=== PATIENT | female | born 1975 | race Caucasian/White ===

== ENCOUNTER 2021-02-20 15:00 | Emergency (ER) | payer BC ==
[2021-02-20 15:04] VITALS: RESP 18; TEMP 97.9
--- NOTE | 2021-02-20 15:08 | ED ---
Chest Pain HPI - General Source: patient, RN notes reviewed Mode of arrival: ambulatory Limitations: no limitations <Naeem Bermudez - Last Filed: 02/20/21 15:04> <Didi Stephens - Last Filed: 02/20/21 21:07> - General Stated Complaint: Chest Pain Time Seen by Provider: 02/20/21 15:00 - History of Present Illness Initial Comments: This a 46-year-old female presents emergency Department chief complaint of chest pain. Patient states symptoms started yesterday. Patient states symptoms have not resolved today they have been on and off it's it's centralized chest pain. She states is a burning sensation. She states it does not feel like GERD. She has no prior cardiac disease denies any history of hypertension hyperlipidemia and diabetes. Patient is a nonsmoker. Patient offers no other complaints. (Naeem Bermudez) - Related Data Home Medications Medication Instructions Recorded Confirmed No Known Home Medications 02/20/21 02/20/21 Allergies Allergy/AdvReac Type Severity Reaction Status Date / Time No Known Allergies Allergy Verified 02/20/21 19:42 Review of Systems ROS Other: All systems not noted in ROS Statement are negative. <Naeem Bermudez - Last Filed: 02/20/21 15:04> ROS Other: All systems not noted in ROS Statement are negative. <Didi Stephens - Last Filed: 02/20/21 21:07> ROS Statement: Those systems with pertinent positive or pertinent negative responses have been documented in the HPI. EKG Findings - EKG Comments: EKG Findings:: EKG obtained at 1532, reviewed by myself at 1925 shows normal sinus rhythm with an incomplete right bundle branch block. Ventricular rate is 86, [place] interval 152, QRS duration 98, QT 382, QTc 457. No evidence of clinically significant ST elevation or depression. <Didi Stephens - Last Filed: 02/20/21 21:07> Past Medical History Past Medical History: No Reported History History of Any Multi-Drug Resistant Organisms: None Reported Past Surgical History: No Surgical Hx Reported Past Psychological History: No Psychological Hx Reported Smoking Status: Never smoker Past Alcohol Use History: None Reported Past Drug Use History: None Reported <Naeem Bermudez - Last Filed: 02/20/21 15:04> General Exam Limitations: no limitations <Naeem Bermudez - Last Filed: 02/20/21 15:04> Course <Didi Stephens - Last Filed: 02/20/21 21:07> Vital Signs 02/20/21 02/20/21 15:02 19:04 Temperature 97.9 F Pulse Rate 101 H 79 Respiratory 18 18 Rate Blood Pressure 184/103 169/108 O2 Sat by Pulse 100 100 Oximetry - Reevaluation(s) Reevaluation #1: 02/20/21 19:26 Patient had a advanced triage protocols and was evaluated by a physician [facility] faculty assistant Naeem Bermudez PA-c. I evaluated the patient when she was moved back to a room. Patient is reporting chest pressure and substernal burning that started last night. States that the pressure has resolved, but she still has a slight burning sensation she is rating at a 2/10 on the pain scale. She denies any personal cardiac history but reports a family history in both parents and sets of grandparents. Patient states that she does not see a physician regularly. Denies any nausea or vomiting. Denies shortness of breath. Denies any cough or congestion. Denies fever or chills. Denies any abdominal pain or back pain. (Didi Stephens) Chest Pain MDM <Didi Stephens - Last Filed: 02/20/21 21:07> - [facility] RADIOLOGY: Two-view x-ray of the chest is obtained. Report was reviewed in its entirety. Impression by Dr. Hernandez shows no acute cardiopulmonary process. MDM: 46-year-old female patient presented to the emergency department today for evaluation of chest pressure and burning. Physical examination is unremarkable. Abdomen soft and nontender. Labs reviewed and did reveal a negative troponin initially. A repeat troponin was performed was negative as well. Did have low hemoglobin 9.9. Does have a history of anemia. Chest x-ray did reveal no acute abdomen abnormalities. EKG did show an incomplete right bundle branch block, no previous for comparison. I did discuss findings and results with the patient. She does feel comfortable being discharged home at this time she is instructed to follow up with a primary care physician for recheck in 1-2 days. Return parameters were discussed in detail. She verbalizes understanding and agrees with this plan. Case discussed with my attending Dr. Gonzalez. (Didi Stephens) Disposition <Dedoe,Naeem M - Last Filed: 02/20/21 15:04> Is patient prescribed a controlled substance at d/c from ED?: No Time of Disposition: 21:06 <Didi Stephens M - Last Filed: 02/20/21 21:07> Clinical Impression: Chest pain, Hypertension, Anemia Disposition: HOME SELF-CARE Condition: Good Instructions (If sedation given, give patient instructions): Chest Pain (ED), Hypertension (ED), Anemia (ED) Additional Instructions: Follow-up with your primary care physician for recheck in 1-2 days. Return to the emergency department immediately for any new, worsening, or concerning symptoms. Referrals: Gamal Alejo MD [Primary Care Provider] - 1-2 days
[2021-02-20 16:00] LABS: ALT 11 U/L (4-34); AST 21 U/L (14-36); African American GFR (CKD) >90 (>60 ml/min/1.73 sqM); Albumin 4.2 g/dL (3.5-5.0); Alkaline Phosphatase 106 U/L (38-126); Anion Gap 9 mmol/L; Blood Urea Nitrogen 11 mg/dL (7-17); Calcium 9.8 mg/dL (8.4-10.2); Carbon Dioxide 24 mmol/L (22-30); Chloride 104 mmol/L (98-107); Glucose 95 mg/dL (74-99); Magnesium 1.7 mg/dL (1.6-2.3); Non-African American GFR(CKD) >90 (>60 ml/min/1.73 sqM); Potassium 3.8 mmol/L (3.5-5.1); Sodium 137 mmol/L (137-145); Total Bilirubin 0.5 mg/dL (0.2-1.3); Total Protein 7.6 g/dL (6.3-8.2)
[2021-02-20 16:01] LABS: Basophils # (A) 0.1 k/uL (0-0.2); Basophils % (A) 1 %; Eosinophils # (A) 0.2 k/uL (0-0.7); Eosinophils % (A) 2 %; HCT 30.9 % (34.0-46.0); HGB 9.9 gm/dL (11.4-16.0); Hypochromasia Marked; INR 0.9 (<1.2); Lymphocytes # (A) 1.9 k/uL (1.0-4.8); Lymphocytes % (A) 18 %; MCH 22.7 pg (25.0-35.0); MCHC 32.1 g/dL (31.0-37.0); MCV 70.8 fL (80.0-100.0); Mean Platelet Volume 7.2; Microcytosis Moderate; Monocytes # (A) 0.5 k/uL (0-1.0); Monocytes % (A) 5 %; Neutrophils # (A) 8.1 k/uL (1.3-7.7); Neutrophils % (A) 74 %; Partial Thromboplastin Time 24.1 sec (22.0-30.0); Platelet Count 376 k/uL (150-450); RBC 4.36 m/uL (3.80-5.40); RDW 15.8 % (11.5-15.5)
--- NOTE | 2021-02-20 16:34 | XR ---
EXAMINATION TYPE: XR chest 2V DATE OF EXAM: 02/20/2021 COMPARISON: NONE HISTORY: Chest pain. TECHNIQUE: Frontal and lateral views of the chest are obtained. FINDINGS: There is no focal air space opacity, pleural effusion, or pneumothorax seen. The cardiac silhouette size is within normal limits. The osseous structures are intact. IMPRESSION: No acute cardiopulmonary process.
[2021-02-20] MEDS ORDERED: MAG HYDROX/AL HYDROX/SIMETH 30 ML, HYOSCYAMINE ELIXIR 10 ML, LIDOCAINE VISCOUS 2% 10 ML PO STA ×3 (19:25)
[2021-02-20 21:23] VITALS: BP 158/89; PULSE 69
== END 2021-02-20 21:25 | disposition home or self-care (01) ==
LOC: EC 15:00
DX: I10 Essential (primary) hypertension (principal); D64.9 Anemia, unspecified
CPT/HCPCS: 36415; 71046; 80053; 83735; 84484; 85025; 85610; 85730; 93005; 99285

== ENCOUNTER 2021-03-07 16:23 | Emergency (ER) | payer BC ==
[2021-03-07] MEDS ORDERED: BAMLANIVIMAB (EUA) 700 MG, ETESEVIMAB (EUA) 1,400 MG in SODIUM CHLORIDE 0.9% 50 ML IVPB ONE (17:45)
--- NOTE | 2021-03-07 18:05 | ED ---
URI HPI - General Chief Complaint: Upper Respiratory Infection Stated Complaint: + covid/Infusion Time Seen by Provider: 03/07/21 16:40 Source: patient Mode of arrival: ambulatory Limitations: no limitations - History of Present Illness Initial Comments: Patient presents with cough. She has fevers and chills. She had a positive coitus. She has no chest or belly or back pain. She has no swelling in the arms or legs. She has no lightheadedness. She has no focal weakness. She has no nausea or vomiting. - Related Data Home Medications Medication Instructions Recorded Confirmed No Known Home Medications 02/20/21 02/20/21 Allergies Allergy/AdvReac Type Severity Reaction Status Date / Time No Known Allergies Allergy Verified 03/07/21 16:28 Review of Systems ROS Statement: Those systems with pertinent positive or pertinent negative responses have been documented in the HPI. ROS Other: All systems not noted in ROS Statement are negative. Past Medical History Past Medical History: Hypertension History of Any Multi-Drug Resistant Organisms: None Reported Past Surgical History: No Surgical Hx Reported Past Psychological History: No Psychological Hx Reported Smoking Status: Never smoker Past Alcohol Use History: None Reported Past Drug Use History: None Reported General Exam Limitations: no limitations General appearance: alert, in no apparent distress Head exam: Present: atraumatic, normocephalic, normal inspection Eye exam: Present: normal appearance, PERRL, EOMI. Absent: scleral icterus, conjunctival injection, periorbital swelling ENT exam: Present: normal exam, mucous membranes moist Neck exam: Present: normal inspection. Absent: tenderness, meningismus, lymphadenopathy Respiratory exam: Present: normal lung sounds bilaterally. Absent: respiratory distress, wheezes, rales, rhonchi, stridor Cardiovascular Exam: Present: regular rate, normal rhythm, normal heart sounds. Absent: systolic murmur, diastolic murmur, rubs, gallop, clicks GI/Abdominal exam: Present: soft, normal bowel sounds. Absent: distended, tenderness, guarding, rebound, rigid Extremities exam: Present: normal inspection, full ROM, normal capillary refill. Absent: tenderness, pedal edema, joint swelling, calf tenderness Back exam: Present: normal inspection Neurological exam: Present: alert, oriented X3, CN II-XII intact Psychiatric exam: Present: normal affect, normal mood Skin exam: Present: warm, dry, intact, normal color. Absent: rash Course Vital Signs 03/07/21 03/07/21 03/07/21 16:29 16:32 17:52 Temperature 98.2 F Pulse Rate 99 95 Respiratory 18 16 Rate Blood Pressure 137/87 130/85 O2 Sat by Pulse 98 97 Oximetry Medical Decision Making - Medical Decision Making Patient presents with [place]. She is given IV therapy. Her exam is unremarkable. She is feeling well. Oxygen saturation is good. She is stable for discharge. Disposition Clinical Impression: COVID-19 Disposition: HOME SELF-CARE Condition: Good Instructions (If sedation given, give patient instructions): Coronavirus Disease 2019 (COVID-19) Is patient prescribed a controlled substance at d/c from ED?: No Referrals: Gamal Alejo MD [Primary Care Provider] - 1-2 days
[2021-03-07] MEDS ORDERED: SODIUM CHLORIDE 0.9% 50 ML IVPB ONE (18:15)
[2021-03-07 19:44] VITALS: BP 136/82; PULSE 82; RESP 18; TEMP 99.8
== END 2021-03-07 19:44 | disposition home or self-care (01) ==
LOC: EC 16:23
DX: U07.1 COVID-19 (principal); I10 Essential (primary) hypertension
CPT/HCPCS: 99283; 96365; Q0245

== ENCOUNTER 2021-11-17 15:06 | Observation (INO) | payer BC ==
[2021-11-17] MEDS ORDERED: NITROGLYCERIN OINT 1 INCH/GM PACKET TOPICAL STA (15:50)
[2021-11-17] MEDS ORDERED: ASPIRIN 81 MG PO STA (15:50)
--- NOTE | 2021-11-17 15:53 | ED ---
General Adult HPI - General Stated complaint: chest pain Time Seen by Provider: 11/17/21 15:30 Source: patient, family, EMS, RN notes reviewed Mode of arrival: EMS Limitations: no limitations - History of Present Illness Initial comments: Patient is a pleasant 46-year-old female presenting to the emergency department chest discomfort. Patient has been experiencing symptoms over the past several days. Discomfort was more severe prior to arrival. Discomfort feels like pressure or indigestion in her chest. At one point there was some discomfort in the back. Patient has felt lightheaded and was sweaty. Discomfort is near resolved at this time. Patient did have somewhat similar symptoms approximately year ago. Patient was going to follow-up for cardiac valuation however had COVID-19 following that and did not follow-up. - Related Data Home Medications Medication Instructions Recorded Confirmed No Known Home Medications 02/20/21 02/20/21 Allergies Allergy/AdvReac Type Severity Reaction Status Date / Time No Known Allergies Allergy Verified 03/07/21 16:28 Review of Systems ROS Statement: Those systems with pertinent positive or pertinent negative responses have been documented in the HPI. ROS Other: All systems not noted in ROS Statement are negative. Constitutional: Denies: fever Eyes: Denies: eye pain ENT: Denies: ear pain Respiratory: Reports: as per HPI, dyspnea (Had mild dyspnea earlier) Cardiovascular: Reports: chest pain Endocrine: Denies: fatigue Gastrointestinal: Denies: abdominal pain Genitourinary: Denies: dysuria Musculoskeletal: Denies: back pain Skin: Denies: rash Neurological: Denies: weakness Past Medical History Past Medical History: Hypertension History of Any Multi-Drug Resistant Organisms: None Reported Past Surgical History: No Surgical Hx Reported Past Psychological History: No Psychological Hx Reported Smoking Status: Never smoker Past Alcohol Use History: None Reported Past Drug Use History: None Reported General Exam Limitations: no limitations General appearance: alert, in no apparent distress Eye exam: Present: normal appearance Neck exam: Present: normal inspection Respiratory exam: Present: normal lung sounds bilaterally. Absent: chest wall tenderness Cardiovascular Exam: Present: regular rate, normal rhythm Expanded Peripheral pulses: 2+: Radial (R), Radial (L), Posterior Tibialis (R), Posterior Tibialis (L) GI/Abdominal exam: Present: soft. Absent: distended, tenderness Extremities exam: Present: normal inspection. Absent: pedal edema, calf tendern ess Neurological exam: Present: alert Psychiatric exam: Present: normal affect, normal mood Skin exam: Present: normal color Course Vital Signs 11/17/21 11/17/21 11/17/21 15:32 15:50 17:57 Temperature 97.2 F L 97.7 F Pulse Rate 55 L 77 Pulse Rate [ 70 [employer] ] Respiratory 19 16 Rate Blood Pressure 127/75 137/84 O2 Sat by Pulse 100 98 Oximetry EKG Findings - EKG Comments: EKG Findings:: Normal sinus rhythm with a rate of 77. IA 154. QRS 100. QT 404. QTC 457. Normal axis. LVH criteria. No acute ST change. Medical Decision Making - Medical Decision Making Patient reevaluated and updated. Case discussed with Dr. Osorio, who will admit covering Dr. Alejo. - Lab Data Result diagrams: 11/17/21 15:52 11/17/21 15:52 Lab Results 11/17/21 11/17/21 11/17/21 Range/Units 15:52 15:52 15:52 WBC 11.7 H (3.8-10.6) k/uL RBC 4.49 (3.80-5.40) m/uL Hgb 9.1 L (11.4-16.0) gm/dL Hct 30.7 L (34.0-46.0) % MCV 68.3 L (80.0-100.0) fL MCH 20.4 L (25.0-35.0) pg MCHC 29.8 L (31.0-37.0) g/dL RDW 18.4 H (11.5-15.5) % Plt Count 444 (150-450) k/uL MPV 7.2 Neutrophils % 70 % Lymphocytes % 20 % Monocytes % 5 % Eosinophils % 2 % Basophils % 1 % Neutrophils # 8.2 H (1.3-7.7) k/uL Lymphocytes # 2.4 (1.0-4.8) k/uL Monocytes # 0.6 (0-1.0) k/uL Eosinophils # 0.2 (0-0.7) k/uL Basophils # 0.1 (0-0.2) k/uL Hypochromasia Marked Anisocytosis Slight Microcytosis Marked PT 10.4 (9.0-12.0) sec INR 1.0 (<1.2) APTT 21.9 L (22.0-30.0) sec D-Dimer 0.38 (<0.60) mg/L FEU Sodium 136 L (137-145) mmol/L Potassium 3.8 (3.5-5.1) mmol/L Chloride 101 (98-107) mmol/L Carbon Dioxide 24 (22-30) mmol/L Anion Gap 11 mmol/L BUN 14 (7-17) mg/dL Creatinine 0.98 (0.52-1.04) mg/dL Est GFR (CKD-EPI)AfAm 79 (>60 ml/min/1.73 sqM) Est GFR (CKD-EPI)NonAf 68 (>60 ml/min/1.73 sqM) Glucose 128 H (74-99) mg/dL Calcium 9.5 (8.4-10.2) mg/dL Magnesium 1.6 (1.6-2.3) mg/dL Total Bilirubin 0.6 (0.2-1.3) mg/dL AST 20 (14-36) U/L ALT 12 (4-34) U/L Alkaline Phosphatase 101 (38-126) U/L Troponin I (0.000-0.034) ng/mL NT-Pro-B Natriuret Pep pg/mL Total Protein 7.5 (6.3-8.2) g/dL Albumin 3.9 (3.5-5.0) g/dL 11/17/21 11/17/21 Range/Units 15:52 15:52 WBC (3.8-10.6) k/uL RBC (3.80-5.40) m/uL Hgb (11.4-16.0) gm/dL Hct (34.0-46.0) % MCV (80.0-100.0) fL MCH (25.0-35.0) pg MCHC (31.0-37.0) g/dL RDW (11.5-15.5) % Plt Count (150-450) k/uL MPV Neutrophils % % Lymphocytes % % Monocytes % % Eosinophils % % Basophils % % Neutrophils # (1.3-7.7) k/uL Lymphocytes # (1.0-4.8) k/uL Monocytes # (0-1.0) k/uL Eosinophils # (0-0.7) k/uL Basophils # (0-0.2) k/uL Hypochromasia Anisocytosis Microcytosis PT (9.0-12.0) sec INR (<1.2) APTT (22.0-30.0) sec D-Dimer (<0.60) mg/L FEU Sodium (137-145) mmol/L Potassium (3.5-5.1) mmol/L Chloride (98-107) mmol/L Carbon Dioxide (22-30) mmol/L Anion Gap mmol/L BUN (7-17) mg/dL Creatinine (0.52-1.04) mg/dL Est GFR (CKD-EPI)AfAm (>60 ml/min/1.73 sqM) Est GFR (CKD-EPI)NonAf (>60 ml/min/1.73 sqM) Glucose (74-99) mg/dL Calcium (8.4-10.2) mg/dL Magnesium (1.6-2.3) mg/dL Total Bilirubin (0.2-1.3) mg/dL AST (14-36) U/L ALT (4-34) U/L Alkaline Phosphatase (38-126) U/L Troponin I <0.012 (0.000-0.034) ng/mL NT-Pro-B Natriuret Pep 40 pg/mL Total Protein (6.3-8.2) g/dL Albumin (3.5-5.0) g/dL - Radiology Data Radiology results: image reviewed (X-ray shows mild interstitial prominence.) Disposition Clinical Impression: Chest pain Disposition: ADMITTED IP TO THIS [facility] Is patient prescribed a controlled substance at d/c from ED?: No Referrals: Gamal Alejo MD [Primary Care Provider] - 1-2 days Decision Time: 18:31
--- NOTE | 2021-11-17 16:16 | XR ---
EXAMINATION TYPE: XR chest 2V DATE OF EXAM: 11/17/2021 COMPARISON: 02/20/2021 HISTORY: 46-year-old female with chest pain TECHNIQUE: PA and lateral views FINDINGS: Heart upper limits of normal in size. Mild interstitial prominence. No consolidation or pleural effus ion. IMPRESSION: Mild interstitial prominence may reflect bronchitis or asthma. Otherwise, no definite acute process.
[2021-11-17 16:34] LABS: Anisocytosis Slight; Basophils # (A) 0.1 k/uL (0-0.2); Basophils % (A) 1 %; Eosinophils # (A) 0.2 k/uL (0-0.7); Eosinophils % (A) 2 %; HCT 30.7 % (34.0-46.0); HGB 9.1 gm/dL (11.4-16.0); Hypochromasia Marked; Lymphocytes # (A) 2.4 k/uL (1.0-4.8); Lymphocytes % (A) 20 %; MCH 20.4 pg (25.0-35.0); MCHC 29.8 g/dL (31.0-37.0); MCV 68.3 fL (80.0-100.0); Mean Platelet Volume 7.2; Microcytosis Marked; Monocytes # (A) 0.6 k/uL (0-1.0); Monocytes % (A) 5 %; Neutrophils # (A) 8.2 k/uL (1.3-7.7); Neutrophils % (A) 70 %; Platelet Count 444 k/uL (150-450); RBC 4.49 m/uL (3.80-5.40); RDW 18.4 % (11.5-15.5); WBC 11.7 k/uL (3.8-10.6)
[2021-11-17 16:47] LABS: Prothrombin Time 10.4 sec (9.0-12.0)
[2021-11-17 16:48] LABS: Partial Thromboplastin Time 21.9 sec (22.0-30.0)
[2021-11-17 17:01] LABS: Albumin 3.9 g/dL (3.5-5.0); Calcium 9.5 mg/dL (8.4-10.2); Magnesium 1.6 mg/dL (1.6-2.3); Potassium 3.8 mmol/L (3.5-5.1); Total Bilirubin 0.6 mg/dL (0.2-1.3); Total Protein 7.5 g/dL (6.3-8.2)
--- NOTE | 2021-11-17 17:11 | P.HPIM ---
History of Present Illness Patient is pleasant 44-year-old female came in with compensative chest discomfort on and off going on now for about 5 days mostly in the epigastric area and retrosternal area radiating to the throat and sometimes to the shoulder blade area. Patient the pain is mostly burning sensation related to food but today morning patient had pressure-like pain in the upper chest area nonradiating associated with diaphoresis lightheadedness and the denied any shortness of breath patient just pain is nonpleuritic. Because of the this chest pain patient came to ER. Patient had an EKG which did not show any significant ST-T wave changes troponins are not available yet. REVIEW OF SYSTEMS: CONSTITUTIONAL: No fever, no malaise, no fatigue. HEENT: No recent visual problems or hearing problems. Denied any sore throat. CARDIOVASCULAR: No orthopnea, PND, no palpitations, no syncope. PULMONARY: No shortness of breath, no cough, no hemoptysis. GASTROINTESTINAL: No diarrhea, no nausea, no vomiting, no abdominal pain. NEUROLOGICAL: No headaches, no weakness, no numbness. HEMATOLOGICAL: Denies any bleeding or petechiae. GENITOURINARY: Denies any burning micturition, frequency, or urgency. MUSCULOSKELETAL/RHEUMATOLOGICAL: Denies any joint pain, swelling, or any muscle pain. ENDOCRINE: Denies any polyuria or polydipsia. The rest of the 14-point review of systems is negative. PHYSICAL EXAMINATION: GENERAL: The patient is alert and oriented x3, not in any acute distress. Well developed, well nourished. HEENT: Pupils are round and equally reacting to light. EOMI. No scleral icterus. No conjunctival pallor. Normocephalic, atraumatic. No pharyngeal erythema. No thyromegaly. CARDIOVASCULAR: S1 and S2 present. No murmurs, rubs, or gallops. PULMONARY: Chest is clear to auscultation, no wheezing or crackles. ABDOMEN: Soft, nontender, nondistended, normoactive bowel sounds. No palpable organomegaly. MUSCULOSKELETAL: No joint swelling or deformity. EXTREMITIES: No cyanosis, clubbing, or pedal edema. NEUROLOGICAL: Gross neurological examination did not reveal any focal deficits. SKIN: No rashes. Assessment and plan -Chest pain: Patient doesn't have any family history of premature coronary artery disease patient doesn't have any risk factors although some of the symptomatology is concerning because of which we'll obtain troponins will monitor her overnight cardiology will be consulted. The other possibilities being gastric esophageal reflux disease for which patient will be started on Protonix -Rule out gallbladder disease will obtain ultrasound of the gallbladder -Ruled out pulmonary embolism d-dimer is within normal limits. Severe microcytic anemia probably iron deficiency anemia will obtain ferritin and iron panel possibly will need IV iron transfusion Leukocytosis: Reactive without any evidence of infection DVT prophylaxis: Ambulation Past Medical History Past Medical History: Hypertension History of Any Multi-Drug Resistant Organisms: None Reported Past Surgical History: No Surgical Hx Reported Past Psychological History: No Psychological Hx Reported Smoking Status: Never smoker Past Alcohol Use History: None Reported Past Drug Use History: None Reported Medications and Allergies Home Medications Medication Instructions Recorded Confirmed Type No Known Home Medications 02/20/21 02/20/21 History Allergies Allergy/AdvReac Type Severity Reaction Status Date / Time No Known Allergies Allergy Verified 03/07/21 16:28 Physical Exam Vitals: Vital Signs Temp Pulse Pulse Resp BP Pulse Ox 11/17/21 15:50 70 11/17/21 15:32 97.2 F L 55 L 19 127/75 100 Intake and Output 11/17/21 11/17/21 11/17/21 06:59 14:59 22:59 Other: Weight 102.058 kg Results CBC & Chem 7: 11/17/21 15:52 11/17/21 15:52 Labs: Abnormal Lab Results - Last 24 Hours (Table) 11/17/21 11/17/21 11/17/21 Range/Units 15:52 15:52 15:52 WBC 11.7 H (3.8-10.6) k/uL Hgb 9.1 L (11.4-16.0) gm/dL Hct 30.7 L (34.0-46.0) % MCV 68.3 L (80.0-100.0) fL MCH 20.4 L (25.0-35.0) pg MCHC 29.8 L (31.0-37.0) g/dL RDW 18.4 H (11.5-15.5) % Neutrophils # 8.2 H (1.3-7.7) k/uL APTT 21.9 L (22.0-30.0) sec Sodium 136 L (137-145) mmol/L Glucose 128 H (74-99) mg/dL
[2021-11-17] MEDS ORDERED: ACETAMINOPHEN TAB 325 MG TAB PO STA (18:06)
[2021-11-17] MEDS ORDERED: NITROGLYCERIN SL TABS 0.4 MG TAB SUBLINGUAL PRN (18:31)
[2021-11-17] MEDS: PANTOPRAZOLE 40 MG/10 ML VIAL IVP SCH ×2 (21:01→21:12)
[2021-11-17] MEDS ORDERED: ACETAMINOPHEN TAB 325 MG TAB PO PRN (21:30)
--- NOTE | 2021-11-17 21:57 | US ---
EXAMINATION TYPE: US gallbladder DATE OF EXAM: 11/17/2021 COMPARISON: NONE CLINICAL HISTORY: Gall stones. EXAM MEASUREMENTS: Liver Length: 13.5 cm Gallbladder Wall: 0.3 cm CBD: 0.5 cm Right Kidney: 9.7 x 4.0 x 3.8 cm Pancreas: wnl Liver: wnl Gallbladder: No stones seen Evidence for sonographic Rubi's sign: Yes CBD: wnl Right Kidney: No hydronephrosis or masses seen IMPRESSION: Normal exam. No gallstones or dilated ducts.
[2021-11-18 01:40] LABS: % Iron Saturation 4.07 (12.00-45.00)
[2021-11-18] MEDS: NITROGLYCERIN OINT 1 INCH/GM PACKET TOPICAL SCH ×3 (02:02→11:54)
[2021-11-18 08:54] VITALS: BP 143/87; PULSE 74; RESP 14; TEMP 98.4
[2021-11-18] MEDS ORDERED: ASPIRIN 325 MG TAB PO SCH (09:00)
[2021-11-18] MEDS: PANTOPRAZOLE 40 MG/10 ML VIAL IVP SCH (09:17)
[2021-11-18 10:00] LABS: Chol/HDL Ratio 3.73 Ratio; LDL Cholesterol,Calculated 81.8 mg/dL (0.0-131.0)
[2021-11-18] MEDS ORDERED: SODIUM FERRIC GLUCONAT-SUCROSE 125 MG in SODIUM CHLORIDE 0.9% 100 ML IVPB ONE (10:00)
--- NOTE | 2021-11-18 10:44 | P.CRDCN ---
History of Present Illness Consult date: 11/18/21 Chief complaint: Chest pain History of present illness: This is a very pleasant 46-year-old female patient with a past medical history significant for hypertension presented to the emergency department and subsequently she was admitted to the observation unit with a chest discomfort. The patient describes discomfort in the middle of the chest as a dull kind of discomfort and she is not quite sure if the discomfort is related to anxiety or no. The discomfort does not radiate to her arms or neck or shoulders or back and is not associated with any symptoms of shortness of breath or dizziness or lightheadedness or any presyncope or syncope. The patient underwent a workup including EKG showing sinus rhythm without any significant ST or T-wave abnormalities and cardiac enzymes came in to be unremarkable and she was ruled out for acute coronary event. The chest x-ray showed no acute abnormalities. Also she underwent an ultrasound of the gallbladder and that came in to be unremarkable. No prior history of coronary artery disease but she does have a family history of hypertrophic cardiomyopathy and she was told that her and her sibling windscreen in the past and ruled out for that condition. Past Medical History Past Medical History: Hypertension History of Any Multi-Drug Resistant Organisms: None Reported Past Surgical History: No Surgical Hx Reported Past Psychological History: No Psychological Hx Reported Smoking Status: Never smoker Past Alcohol Use History: None Reported Past Drug Use History: None Reported Medications and Allergies Home Medications Medication Instructions Recorded Confirmed Type Hydrochlorothiazide 12.5 mg PO DAILY 11/17/21 11/17/21 History [hydroCHLOROthiazide] Ibuprofen [Advil] 400 mg PO ONCE PRN 11/17/21 11/17/21 History Allergies Allergy/AdvReac Type Severity Reaction Status Date / Time No Known Allergies Allergy Verified 11/17/21 19:27 Physical Exam Vitals: Vital Signs Temp Pulse Pulse Pulse Resp BP BP 11/18/21 08:53 98.4 F 74 14 143/87 11/18/21 07:00 97.6 F 97 16 139/86 11/18/21 01:59 97.6 F 84 18 118/68 11/17/21 20:00 97.6 F 80 16 131/80 11/17/21 17:57 97.7 F 77 16 137/84 11/17/21 15:50 70 11/17/21 15:32 97.2 F L 55 L 19 127/75 Pulse Ox 11/18/21 08:53 96 11/18/21 07:00 97 11/18/21 01:59 100 11/17/21 20:00 100 11/17/21 17:57 98 11/17/21 15:50 11/17/21 15:32 100 Intake and Output 11/17/21 11/18/21 11/18/21 22:59 06:59 14:59 Other: # Voids 2 Weight 102.058 kg 102.06 kg - Constitutional General appearance: no acute distress - Respiratory Respiratory: bilateral: CTA - Cardiovascular Rhythm: regular Heart sounds: normal: S1, S2 Results 11/17/21 15:52 11/17/21 15:52 Cardiac Enzymes 11/17/21 11/17/21 11/17/21 Range/Units 15:52 15:52 18:58 AST 20 (14-36) U/L Troponin I <0.012 <0.012 (0.000-0.034) ng/mL 11/17/21 Range/Units 21:48 AST (14-36) U/L Troponin I <0.012 (0.000-0.034) ng/mL Coagulation 11/17/21 Range/Units 15:52 PT 10.4 (9.0-12.0) sec APTT 21.9 L (22.0-30.0) sec Lipids 11/18/21 Range/Units 04:47 Triglycerides 162.00 H (0.00-149.00) mg/dL Cholesterol 156.00 (0.00-200.00) mg/dL HDL Cholesterol 41.80 (40.00-60.00) mg/dL Cholesterol/HDL Ratio 3.73 Ratio CBC 11/17/21 Range/Units 15:52 WBC 11.7 H (3.8-10.6) k/uL RBC 4.49 (3.80-5.40) m/uL Hgb 9.1 L (11.4-16.0) gm/dL Hct 30.7 L (34.0-46.0) % Plt Count 444 (150-450) k/uL Comprehensive Metabolic Panel 11/17/21 Range/Units 15:52 Sodium 136 L (137-145) mmol/L Potassium 3.8 (3.5-5.1) mmol/L Chloride 101 (98-107) mmol/L Carbon Dioxide 24 (22-30) mmol/L BUN 14 (7-17) mg/dL Creatinine 0.98 (0.52-1.04) mg/dL Glucose 128 H (74-99) mg/dL Calcium 9.5 (8.4-10.2) mg/dL AST 20 (14-36) U/L ALT 12 (4-34) U/L Alkaline Phosphatase 101 (38-126) U/L Total Protein 7.5 (6.3-8.2) g/dL Albumin 3.9 (3.5-5.0) g/dL Current Medications Generic Name Dose Route Start Last Admin Trade Name Freq PRN Reason Stop Dose Admin Acetaminophen 650 mg 11/17/21 21:30 11/18/21 00:14 Acetaminophen Tab 325 Mg Tab PO 650 mg Q6HR PRN Administration Fever and/ or Pain Aspirin 325 mg 11/18/21 09:00 11/18/21 09:17 Aspirin 325 Mg Tab PO 325 mg DAILY LISA Administration Ferric Sodium Gluconate 125 mg 110 mls @ 100 mls/hr 11/18/21 10:00 / Sodium Chloride IVPB 11/18/21 11:05 ONCE ONE Nitroglycerin 0.4 mg 11/17/21 18:31 Nitroglycerin Sl Tabs 0.4 Mg Tab SUBLINGUAL Q5M PRN Chest Pain Nitroglycerin 1 inch 11/18/21 00:00 11/18/21 05:44 Nitroglycerin Oint 1 Inch/Gm Packet TOPICAL Not Given Q6HR LISA Pantoprazole Sodium 40 mg 11/17/21 17:03 11/18/21 09:17 Pantoprazole 40 Mg/10 Ml Vial IVP 40 mg BID LISA Administration Intake and Output 11/17/21 11/18/21 11/18/21 22:59 06:59 14:59 Other: # Voids 2 Weight 102.058 kg 102.06 kg Patient Weight 11/19/21 06:59 Weight 102.06 kg 11/17/21 15:52 11/17/21 15:52 Assessment and Plan Assessment: Assessment #1 chest discomfort #2 hypertension Plan #1 acute coronary syndrome was ruled out #2 obtain a stress test #3 follow-up with the patient
--- NOTE | 2021-11-18 13:53 | ECHOS ---
STRESS ECHOCARDIOGRAM INDICATIONS: Chest pain. BASELINE HEART RATE: 84 BASELINE BLOOD PRESSURE: 146/78 MAXIMUM HEART RATE: 162 MAXIMUM BLOOD PRESSURE: 238/47 85% MPHR: 146 100% MPHR: 172 METS: 7.1 MAXIMUM STAGE REACHED: 2 TOTAL EXERCISE TIME: 6:00 CLINICAL INFORMATION: STRESS DATA: Pre-testing physical examination showed a heart rate of 84, pressure 146/78 mmHg. Baseline EKG showed sinus mechanism. The patient exercised on the treadmill according to Osbaldo protocol for a total of 6 minutes and achieved 7.1 METS. Max heart rate was 162, which is about 94% of maximum predicted heart rate, and maximum blood pressure was 238/47 mmHg. Clinically the patient developed mild chest discomfort; she stated about 3/10 in intensity. The EKG did not show any significant ST or T-wave abnormalities concerning for ischemia. ECHOCARDIOGRAM IMAGES: Echocardiogram images from parasternal long axis view, parasternal short axis view, apical 4-chamber and apical 2-chamber views were obtained as the baseline images, at the peak of the heart rate as well as on recovery. The echocardiogram images showed good augmentation in the left ventricular systolic function without any evidence of wall motion abnormalities concerning for ischemia. CONCLUSION: 1. Good exercise tolerance. 2. Normal EKG in response to exercise. 3. Normal echocardiogram in response to exercise. MMODL / IJN: [id number] /
--- NOTE | 2021-11-20 11:29 | P.DS ---
Providers Date of admission: 11/17/21 18:31 Expected date of discharge: 11/18/21 Attending physician: Ramesh Osorio Consults: 11/17/21 18:31 Consult Physician Urgent Consulting Provider: Armond Holloway Consult Reason/Comments: cp Do you want consulting provider notified?: Yes Primary care physician: Gamal Alejo Hospital Course: Final diagnosis -Chest pain: ruled out ACS -possible peptic ulcer disease or acid reflux -Ruled out gallbladder disease -Ruled out pulmonary embolism d-dimer is within normal limits. -Severe microcytic anemia probably iron deficiency anemia -Leukocytosis: Reactive without any evidence of infection -DVT prophylaxis -full code Discharge disposition Patient is being discharged in a stable condition with guarded prognosis to home. Patient will follow-up with in the outpatient setting upon discharge. Patient to also follow up with cardiology in one week. Total time taken is greater than 35 minutes. Hospital course Patient is pleasant 44-year-old female came in with compensative chest discomfort on and off going on now for about 5 days mostly in the epigastric area and retrosternal area radiating to the throat and sometimes to the shoulder blade area. Patient the pain is mostly burning sensation related to food but today morning patient had pressure-like pain in the upper chest area nonradiating associated with diaphoresis lightheadedness and the denied any shortness of breath patient just pain is nonpleuritic. Because of the this chest pain patient came to ER. Patient had an EKG which did not show any significant ST-T wave changes troponins are not available yet. 11/18/2021 Patient seen in follow up and underwent stress test which was negative. Patient will follow closely with Dr. Evans in one week. Continue current medications. Patient will be given an iron transfusion prior to discharge and start low dose and recommend outpatient follow up with labs with Dr. Alejo. Patient would like to go home today. Currently no reports of chest pain, palpitations, or shortness of breath. Patient is afebrile. No reports of nausea or vomiting noted. Patient tolerating diet. Patient will be discharged home today. Guarded prognosis as patient is high risk for readmissions secondary to alcohol use. Physical examination: GENERAL: The patient is alert and oriented x3, not in any acute distress. Well developed, well nourished. HEENT: Pupils are round and equally reacting to light. EOMI. No scleral icterus. No conjunctival pallor. Normocephalic, atraumatic. No pharyngeal erythema. No t hyromegaly. CARDIOVASCULAR: S1 and S2 present. No murmurs, rubs, or gallops. PULMONARY: Chest is clear to auscultation, no wheezing or crackles. ABDOMEN: Soft, nontender, nondistended, normoactive bowel sounds. No palpable organomegaly. MUSCULOSKELETAL: No joint swelling or deformity. EXTREMITIES: No cyanosis, clubbing, or pedal edema. NEUROLOGICAL: Gross neurological examination did not reveal any focal deficits. SKIN: No rashes. Please refer to medication reconciliation sheet for a list of medications. Patient Condition at Discharge: Stable Plan - Discharge Summary Discharge Rx Participant: No New Discharge Prescriptions: New Ferrous Sulfate [Iron (65 MG Elemental)] 325 mg PO DAILY 30 Days #30 tab Acetaminophen Tab [Tylenol] 650 mg PO Q6HR PRN tab PRN Reason: Fever And/ Or Pain Continue Hydrochlorothiazide [hydroCHLOROthiazide] 12.5 mg PO DAILY Ibuprofen [Advil] 400 mg PO ONCE PRN PRN Reason: Pain Discharge Medication List Hydrochlorothiazide [hydroCHLOROthiazide] 12.5 mg PO DAILY 11/17/21 [History] Ibuprofen [Advil] 400 mg PO ONCE PRN 11/17/21 [History] Acetaminophen Tab [Tylenol] 650 mg PO Q6HR PRN tab 11/18/21 [Rx] Ferrous Sulfate [Iron (65 MG Elemental)] 325 mg PO DAILY 30 Days #30 tab 11/18 [Rx] Follow up Appointment(s)/Referral(s): Gamal Alejo MD [Primary Care Provider] - 1-2 days Eddie Evans MD [STAFF PHYSICIAN] - 1 Week Patient Instructions/Handouts: Chest Pain (DC) Activity/Diet/Wound Care/Special Instructions: Activity Limited until follow-up Follow-up with primary care provider on discharge continue taking medications as prescribed Continue with iron supplementation and if having constipation issues trial taking iron tablet every other day Discussed with her primary care provider about medication changes Continue heart healthy diet Follow-up with cardiology outpatient Discharge Disposition: HOME SELF-CARE
== END 2021-11-18 14:13 | disposition home or self-care (01) ==
LOC: EC 15:06 → 6NMEDSUR 18:31
PROVIDERS: ADMIT Internal Medicine; ATTEND Internal Medicine
DX: R07.9 Chest pain, unspecified (principal); R07.89 Other chest pain; D50.9 Iron deficiency anemia, unspecified; D72.829 Elevated white blood cell count, unspecified; R61 Generalized hyperhidrosis; R42 Dizziness and giddiness; I10 Essential (primary) hypertension; Z20.822 Contact with and (suspected) exposure to COVID-19; Z79.899 Other long term (current) drug therapy; Z86.16 Personal history of COVID-19; Z82.49 Family history of ischemic heart disease and other diseases of the circulatory system
CPT/HCPCS: 96365; 96366; 96375; 99285; 36415; 93005 ×2; 93351; 85379; 83880; 80061; 80053; 83540; 83550; 83735; 84484; 85025; 85610; 85730; 87635; 71046; 76705; G0378 ×2; J2916; C9113

== ENCOUNTER 2022-03-18 10:17 | Day surgery (SDC) | payer BC ==
[2022-03-17 08:59] VITALS: BMI 37.1
[~2022-03-18 10:17] MED LIST: LACTATED RINGERS 1,000 ML IV SCH
[2022-03-18 10:39] VITALS: TEMP 98.4
[2022-03-18] MEDS ORDERED: LIDOCAINE 1% INJ 10MG/ML (20 ML MDV) ONE (11:55)
[2022-03-18] MEDS ORDERED: PROPOFOL 10 MG/ML 20 ML VIAL IV ONE (11:55)
--- NOTE | 2022-03-18 12:05 | P.PCN ---
Date of Procedure: 03/18/22 Procedure(s) Performed: BRIEF HISTORY: Patient is a 47-year-old, pleasant, white female scheduled for an upper endoscopy for evaluation of epigastric pain, heartburn intermittent dysphagia to solids. She was recently started on Pepcid 20 mg daily and symptoms are gradually improving.. PROCEDURE PERFORMED: Esophagogastroduodenoscopy with biopsy. PREOPERATIVE DIAGNOSIS: GERD/intermittent dysphagia to solids. IV sedation per anesthesia. PROCEDURE: After informed consent was obtained, the patient was brought into the endoscopy unit. IV sedation was administered by Anesthesia under continuous monitoring. Initially the Olympus GIF-140 video endoscope was inserted into the mouth. Esophagus intubated without any difficulty. It was gradually advanced into the stomach and duodenum and carefully examined. The bulb and the second part of the duodenum appeared normal. The scope at this time was withdrawn to the stomach, adequately insufflated with air, and upon careful examination, mucosa of the antrum and mild gastritis and biopsies were done from this area. The, body, cardia and the fundus appeared normal. The scope was then withdrawn into the esophagus. The GE junction was located at 39 cm from the incisors. The esophagus appeared normal. There were no erosions or ulcerations seen, multiple biopsies were done from mid and distal esophagus to rule out eosinophilic esophagitis and the patient tolerated the procedure well. IMPRESSION: 1. Mild antral gastritis. 2. Normal-appearing esophagus with no evidence of esophagitis or esophageal stricture. RECOMMENDATIONS: The findings of this examination were discussed with the patient as well as a family.. Advised to follow with the biopsy results. Continue with Pepcid 20 mg twice daily and continue to follow antireflux measures. She well be l be seen in office in 3 months.
[2022-03-18 12:23] VITALS: BP 136/83; PULSE 75; RESP 16
== END 2022-03-18 12:37 | disposition home or self-care (01) ==
LOC: ORWHC2ENDO 10:17
PROVIDERS: ATTEND Internal Medicine Gastroenterology
DX: K29.50 Unspecified chronic gastritis without bleeding (principal); K21.9 Gastro-esophageal reflux disease without esophagitis; I10 Essential (primary) hypertension; Z79.899 Other long term (current) drug therapy
CPT/HCPCS: 81025; 88305; 43239; J2001; J2704

== ENCOUNTER → 2023-06-11 | Outpatient (CLI) | payer BC ==
--- NOTE | 2023-06-14 08:58 | MM ---
Reason for Exam: Screening (asymptomatic). Patient History: Menarche at age 9. First Full-Term at age 25. Perimenopausal. Risk Values: Inge 5 year model risk: 1.2%. NCI Lifetime model risk: 10.8%. Tissue Density: The breast tissue is heterogeneously dense. This may lower the sensitivity of mammography. Findings: Analyzed By CAD. Right breast 7 mm mass 4.0 cm from the nipple on right MLO view slice 35/83. Left breast: 8 mm mass 6.7 cm from the nipple on left MLO view slice 48/84. Overall Assessment: Incomplete: need additional imaging evaluation, BI-RAD 0 Management: Diagnostic Mammogram of both breasts. Diagnostic Breast Ultrasound of both breasts. Ultrasound if findings persist [facility] will attempt to contact patient to return for supplemental views and ultrasound if indicated. Patient should continue monthly self-breast exams. A clinical breast exam by your physician is recommended on an annual basis. This exam should not preclude additional follow-up of suspicious palpable abnormalities. Note on Inge scores and lifetime risk: 1. A Inge score greater than 3% is considered moderate risk. If this is the case, consider specialist referral to assess eligibility for a risk reducing agent. 2. If overall lifetime risk for the development of breast cancer is 20% or higher, the patient may qualify for future screening with alternating mammogram and breast MRI. Electronically signed and approved by: Dennis Wu DO
== END | disposition home or self-care (01) ==
LOC: RADMAMWWP 07:58
PROVIDERS: ATTEND Family Medicine
DX: Z12.31 Encounter for screening mammogram for malignant neoplasm of breast (principal)
CPT/HCPCS: 77063; 77067

== ENCOUNTER → 2023-09-01 | Outpatient (CLI) | payer BC ==
[2023-09-01 20:39] LABS: Basophils # (A) 0.08 X 10*3/uL (0.00-0.10); Basophils % (A) 0.7 %; Eosinophils # (A) 0.26 X 10*3/uL (0.04-0.35); Eosinophils % (A) 2.4 %; HCT 33.9 % (37.2-46.3); HGB 10.7 d/dL (12.0-15.0); Lymphocytes # (A) 2.66 X 10*3/uL (0.90-5.00); Lymphocytes % (A) 24.2 %; MCHC 31.6 d/dL (32.0-37.0); MCV 79.2 FL (80.0-97.0); Mean Platelet Volume 10.4 FL (9.5-12.2); Monocytes # (A) 0.92 X 10*3/uL (0.20-1.00); Monocytes % (A) 8.4 %; NRBC Per 100 WBC 0 X 10*3/uL (0.00-0.01); Neutrophils # (A) 7.04 X 10*3/uL (1.80-7.70); Platelet Count 350 X 10*3/uL (140-440); RBC 4.28 X 10*6/uL (4.10-5.20); RDW 17.3 % (11.5-14.5); WBC 10.99 X 10*3/uL (4.50-10.00)
[2023-09-01 20:44] LABS: % Iron Saturation 10.85 (12.00-45.00); Ferritin 9.9 ng/mL (10.0-291.0); T4, Free (Free Thyroxine) 1.12 ng/dL (0.80-1.80)
--- NOTE | 2023-09-02 12:58 | US ---
EXAMINATION TYPE: US thyroid st tissue head/neck DATE OF EXAM: 09/01/2023 COMPARISON: NONE CLINICAL INDICATION: Female, 48 years old with history of E03.9 HYPOTHYROIDISM, UNSPECIFIED; Patient is on thyroid medication. Patient has hypothyroidism. GLAND SIZE: Right Lobe: 6.3 x 2.8 x 2.2 cm Overall Parenchyma: heterogenous Left Lobe: 5.4 x 1.8 x 1.9 cm Overall Parenchyma: heterogenous Isthmus Thickness: 0.58 cm NODULES RIGHT: # of nodules measured on right: 2 1. 1.6 X 1.3 x 1.0 cm, lower lateral, mixed cystic and solid, heterogeneous hypoechoic TR 4 nodule, which is wider than tall, with smooth margins, without echogenic foci. Prior size: no prior 2. 2.0 X 1.3 x 1.1 cm, lower medial, mixed cystic and solid, hypoechoic TR 4 nodule, which is wider than tall, with smooth margins, without echogenic foci. An internal 7 mm cystic component is noted. Prior size: no prior LEFT: # of nodules measured on left: 0 ISTHMUS: # of nodules measured in the isthmus: 0 Bilateral neck scanned, no evidence of lymphadenopathy. IMPRESSION: Correlate for multinodular goiter. TR4 nodules on the right measure 2.0 cm and 1.6 cm. FNA can be con sidered.
== END | disposition home or self-care (01) ==
LOC: RADUSWWP 16:17
PROVIDERS: ATTEND Family Medicine
DX: E04.2 Nontoxic multinodular goiter (principal); E03.9 Hypothyroidism, unspecified; D50.9 Iron deficiency anemia, unspecified
CPT/HCPCS: 76536; 82728; 83540; 83550; 84439; 84443; 84481; 85025